=== PATIENT | male | born 1960 | race Caucasian/White ===

== ENCOUNTER 2019-11-26 08:11 | Outpatient (CLI) | payer BC, OTHER, SELFPAY ==
[2019-11-26 08:46] LABS: Hematocrit 46.9 % (42.0-52.0); Hemoglobin 16.4 g/dL (14.0-18.0); Mean Corpuscular Volume 94.4 fl (80-100); Mean Platelet Volume 11.3 fl (7.4-10.4); Platelet Count Result 222 k/mm3 (150-375); Red Blood Count 4.97 M/mm3 (4.6-6.20); Red Cell Distribution Width 12.9 % (11.5-14.5); White Blood Count 6.6 K/mm3 (4.5-10.0)
[2019-11-26 08:47] LABS: Alanine Aminotransferase 23 U/L (4-50); Albumin Level 4.5 g/dL (3.5-5.1); Alkaline Phosphatase 64 U/L (38-126); Aspartate Amino Transferase 28 U/L (17-59); Bilirubin,Total 0.6 mg/dL (0.2-1.3); Blood Urea Nitrogen 11 mg/dL (9-20); Calcium 9.3 mg/dL (8.4-10.2); Carbon Dioxide 26 mmol/L (22-30); Chloride 104 mmol/L (98-107); Cholesterol 181 mg/dL (0-200); Estimated Glomerular Filt Rate > 60; Glucose 93 mg/dL (75-110); HDL Direct 39 mg/dL; Potassium 4.5 mmol/L (3.4-5.0); Sodium 138 mmol/L (137-145); Triglycerides 124 mg/dL (<150)
[2019-11-26 08:58] LABS: LDL Cholesterol Direct 104 mg/dL
[2019-11-26 10:33] LABS: Thyroid Stimulating Hormone Reflex 0.741 uIU/mL (0.465-4.68)
== END 2019-11-26 08:12 | disposition home or self-care (01) ==
PROVIDERS: PCP Family Medicine; Visit Provider Family Medicine
DX: E78.2 Mixed hyperlipidemia (principal); R53.83 Other fatigue; I48.0 Paroxysmal atrial fibrillation; I10 Essential (primary) hypertension
CPT/HCPCS: 36415; 80053; 80061; 84443; 85027

== ENCOUNTER 2020-10-19 07:13 | Outpatient (CLI) | payer BC, OTHER, SELFPAY ==
[2020-10-19 07:54] LABS: Hematocrit 45.5 % (42.0-52.0); Hemoglobin 15.6 g/dL (14.0-18.0); Mean Corpuscular HGB Conc 34.3 g/dl (32-36); Mean Corpuscular Hemoglobin 32.2 pg (26-34); Mean Platelet Volume 10.5 fl (7.4-10.4); Platelet Count Result 207 k/mm3 (150-375); Red Blood Count 4.84 M/mm3 (4.6-6.20); White Blood Count 5.9 K/mm3 (4.5-10.0)
[2020-10-19 08:07] LABS: Alanine Aminotransferase 30 U/L (4-50); Albumin Level 4.2 g/dL (3.5-5.1); Alkaline Phosphatase 61 U/L (38-126); Anion Gap 9 mmol/L (8-16); Aspartate Amino Transferase 35 U/L (17-59); Bilirubin,Total 0.6 mg/dL (0.2-1.3); Blood Urea Nitrogen 12 mg/dL (9-20); Calcium 9.5 mg/dL (8.4-10.2); Carbon Dioxide 25 mmol/L (22-30); Chloride 107 mmol/L (98-107); Cholesterol 230 mg/dL (0-200); Estimated Glomerular Filt Rate > 60; Glucose 96 mg/dL (75-110); HDL Direct 43 mg/dL; Potassium 4.2 mmol/L (3.4-5.0); Sodium 141 mmol/L (137-145); Triglycerides 163 mg/dL (<150)
[2020-10-19 08:19] LABS: LDL Cholesterol Direct 125 mg/dL
[2020-10-19 08:45] LABS: Prostate Specific Antigen 2.6 ng/mL (< OR = 4.0)
[2020-10-19 08:49] LABS: Thyroid Stimulating Hormone Reflex 0.863 uIU/mL (0.465-4.68)
== END 2020-10-19 07:14 | disposition home or self-care (01) ==
PROVIDERS: PCP Family Medicine; Visit Provider Family Medicine
DX: Z12.5 Encounter for screening for malignant neoplasm of prostate (principal); R53.83 Other fatigue; I48.0 Paroxysmal atrial fibrillation; E78.2 Mixed hyperlipidemia
CPT/HCPCS: 36415; 80053; 80061; 84153; 84443; 85027; G0103

== ENCOUNTER 2021-06-20 07:09 | Outpatient (CLI) | payer BC, OTHER, SELFPAY ==
[2021-06-20 08:21] LABS: Alanine Aminotransferase 23 U/L (4-50); Albumin Level 4.2 g/dL (3.5-5.1); Alkaline Phosphatase 75 U/L (38-126); Anion Gap 8 mmol/L (8-16); Aspartate Amino Transferase 26 U/L (17-59); Bilirubin,Total 0.4 mg/dL (0.2-1.3); Blood Urea Nitrogen 16 mg/dL (9-20); Calcium 9.6 mg/dL (8.4-10.2); Carbon Dioxide 26 mmol/L (22-30); Chloride 106 mmol/L (98-107); Cholesterol 164 mg/dL (0-200); Estimated Glomerular Filt Rate > 60; Glucose 101 mg/dL (65-110); HDL Direct 34 mg/dL; Potassium 4.3 mmol/L (3.4-5.0); Sodium 140 mmol/L (137-145); Triglycerides 118 mg/dL (<150)
[2021-06-20 08:32] LABS: LDL Cholesterol Direct 92 mg/dL
== END 2021-06-20 07:10 | disposition home or self-care (01) ==
LOC: ANHLAB 07:11
PROVIDERS: PCP Family Medicine; Visit Provider Family Medicine
DX: E78.2 Mixed hyperlipidemia (principal); I48.0 Paroxysmal atrial fibrillation
CPT/HCPCS: 36415; 80053; 80061

== ENCOUNTER 2021-10-24 07:17 | Outpatient (CLI) | payer BC, OTHER, SELFPAY ==
[2021-10-24 08:09] LABS: Alanine Aminotransferase 25 U/L (6-50); Albumin Level 4.8 g/dL (3.5-5.1); Alkaline Phosphatase 86 U/L (38-126); Anion Gap 7 mmol/L (8-16); Aspartate Amino Transferase 25 U/L (17-59); Bilirubin,Total 0.5 mg/dL (0.2-1.3); Blood Urea Nitrogen 21 mg/dL (9-20); Calcium 9.2 mg/dL (8.4-10.2); Carbon Dioxide 25 mmol/L (22-30); Chloride 106 mmol/L (98-107); Cholesterol 212 mg/dL (0-200); Estimated Glomerular Filt Rate > 60; Glucose 111 mg/dL (65-110); HDL Direct 48 mg/dL; Potassium 4.2 mmol/L (3.4-5.0); Sodium 138 mmol/L (137-145); Triglycerides 209 mg/dL (<150)
[2021-10-24 08:21] LABS: LDL Cholesterol Direct 109 mg/dL
[2021-10-24 08:39] LABS: Prostate Specific Antigen 3.3 ng/mL (< OR = 4.0)
== END 2021-10-24 07:18 | disposition home or self-care (01) ==
LOC: ANHLAB 07:20
PROVIDERS: PCP Family Medicine; Visit Provider Family Medicine
DX: E11.9 Type 2 diabetes mellitus without complications (principal); E78.2 Mixed hyperlipidemia; Z12.5 Encounter for screening for malignant neoplasm of prostate
CPT/HCPCS: 36415; 80053; 80061; 84153; G0103

== ENCOUNTER 2022-05-16 07:15 | Outpatient (CLI) | payer BC, OTHER, SELFPAY ==
[2022-05-16 08:00] LABS: Potassium 4.1 mmol/L (3.4-5.0)
[2022-05-16 08:01] LABS: Alanine Aminotransferase 27 U/L (6-50); Albumin Level 4.5 g/dL (3.5-5.1); Alkaline Phosphatase 77 U/L (38-126); Anion Gap 6 mmol/L (8-16); Aspartate Amino Transferase 27 U/L (17-59); Bilirubin,Total 0.6 mg/dL (0.2-1.3); Blood Urea Nitrogen 12 mg/dL (9-20); Calcium 9.2 mg/dL (8.4-10.2); Carbon Dioxide 30 mmol/L (22-30); Chloride 102 mmol/L (98-107); Cholesterol 210 mg/dL (0-200); Estimated Glomerular Filt Rate > 60; Glucose 98 mg/dL (65-110); HDL Direct 41 mg/dL; Sodium 138 mmol/L (137-145); Triglycerides 183 mg/dL (<150)
[2022-05-16 08:11] LABS: LDL Cholesterol Direct 109 mg/dL
[2022-05-16 09:02] LABS: Hemoglobin A1C 5.5 % (<5.7)
== END 2022-05-16 07:16 | disposition home or self-care (01) ==
LOC: ANHLAB 07:18
PROVIDERS: PCP Family Medicine; Visit Provider Family Medicine
DX: E78.2 Mixed hyperlipidemia (principal); R73.09 Other abnormal glucose
CPT/HCPCS: 36415; 80053; 80061; 83036

== ENCOUNTER 2022-11-01 06:43 | Outpatient (CLI) | payer BC, OTHER, SELFPAY ==
[2022-11-01 07:30] LABS: Alanine Aminotransferase 31 U/L (6-50); Albumin Level 4.3 g/dL (3.5-5.1); Alkaline Phosphatase 79 U/L (38-126); Anion Gap 4 mmol/L (8-16); Aspartate Amino Transferase 29 U/L (17-59); Bilirubin,Total 0.6 mg/dL (0.2-1.3); Blood Urea Nitrogen 15 mg/dL (9-20); Calcium 8.9 mg/dL (8.4-10.2); Carbon Dioxide 30 mmol/L (22-30); Chloride 106 mmol/L (98-107); Cholesterol 177 mg/dL (0-200); Estimated Glomerular Filt Rate > 60; Glucose 96 mg/dL (65-110); HDL Direct 44 mg/dL; Potassium 4.3 mmol/L (3.4-5.0); Sodium 140 mmol/L (137-145); Triglycerides 165 mg/dL (<150)
[2022-11-01 07:40] LABS: LDL Cholesterol Direct 99 mg/dL
[2022-11-01 08:56] LABS: Prostate Specific Antigen 3.4 ng/mL (< OR = 4.0)
== END 2022-11-01 06:44 | disposition home or self-care (01) ==
LOC: ANHLAB 06:45
PROVIDERS: PCP Family Medicine; Visit Provider Family Medicine
DX: E78.2 Mixed hyperlipidemia (principal); I48.0 Paroxysmal atrial fibrillation; Z12.5 Encounter for screening for malignant neoplasm of prostate
CPT/HCPCS: 36415; 80053; 80061; 84153; G0103

== ENCOUNTER 2022-12-04 09:00 | Outpatient (RCR) | payer BC, OTHER, SELFPAY ==
--- NOTE | 2022-10-30 15:43 | PTOPEVAL1 ---
Assessment and note entered by Rosaura Quick, PT Evaluation Information Assessment Status Evaluation Diagnosis dizziness Onset September 2022 Subjective Information chronic issues with dizziness; intermittent symptoms; symptoms: light headed- comes and goes, ears pinch and itch, world spinning increase symptoms: weather changes; bend forward and stand back up; sit to stand too fast; decrease symptoms: since getting the allergy shots; lie down in bed or recline in recliner; rest use meclazine PRN; previous treatment for vertigo: walk with turning rest, take meds; have had treatment for BPPV; Reported Pain Level Pain Score Self Report Additional Pain Score Comments pain range in neck over the past week 0-6/10; have headaches take over the counter meds--2x/week Assessment PT Clinical Summary William has the diagnosis of dizziness. He has a complex medical history with multiple risk factors for dizziness: neck pain, headaches, back pain, hearing loss, anxiety, allergy/sinus issues, a fib, multiple meds. He reports issues since with dizziness. Recently has been less since being treated by an lime plant operator with allergy shots monthly. And weather changes seem to increase his symptoms. With the evaluation: he has decreased cervical rotation to R and L, and shoulder flexion and abduction ROM with all, pain increase; with the vestibular testing: he had increase symptoms with gaze stabilization and eye tracking with vertical motions; Jennifer King [place] and Horizontal roll test for BPPV were negative; activity motions that increase s/s: supine/sit, sit/stand, 360' turn to R > L and pick something up off floor. Skilled PT services are indicated for vestibular therapy, with treatment initiate with occulomotor activities to improve vestibular system, with progression of treatment to improve his mobility and activity level.
--- NOTE | 2022-12-04 10:03 | OPREHPOC ---
Outpatient Therapy Plan of Care This is a Multidisciplinary Plan of Care that may contain components documented by all disciplines (PT, OT, and ST.) PT Problem 1 PT Problem #1 Knowledge Deficit PT Goal 1 Goal 1* pt indep with HEP Progress Met Comment 12-04-22 progress/ HOLD met goal PT Problem 2 PT Problem #2 Impaired Vestibular Syste PT Goal 1 Goal pt perform without vestibular symptoms: 1* standing gaze stabilization with head motion up /down x 20 reps 2* standing with eye tracking up/down with head stable x 20 reps 3* transfer supine to sit 4* transfer sit to stand 5* 360' turn to R x1 rep 6* 360' turn to L x 1 rep 7* pick something up off floor 8* further testing of vestibular system as indicated with progression of treatment Progress Partially Met Comment 12-04-22 progress/ HOLD met goal 1,2,5,6,7-- reports of off balance not spinning/dizzy
--- NOTE | 2022-12-04 10:04 | PTOPPROG ---
Assessment and note entered by Rosaura Quick, PT Evaluation Information Assessment Status Progress Diagnosis dizziness Onset September 2022 Subjective Information William reports: still having problems--balance problems when close his eyes; some off balance with walking; s/s: lightheaded, sloshy headed feeling; do not have all the time, but always on the edge of starting up; some balance problems; some white dots see when close eyes; increase s/s: usually more troubles in the morning, compared to later in the day; afternoons are not as bad; both ears hurt ,pinching feeling- deep in ear; EDUCATION: discussed time of taking meds-- tracking s/s to when take meds; consider allergy, sinus issues, hearing issues; HEP: review- doing cervical stretching, eye tracking exercises, balance- heel toe stand and single leg standing; He will be out of town most of December and has an ENT appointment Jan 09--wants to hold on therapy until after he sees ENT. Assessment PT Clinical Summary William has received 6 PT sessions. He continues to have reports as above--little dizzy, spinning, off balance. Also reports of ear pain and pinching, with visual changes--seeing white dots and double vision with BPPV testing. Education completed for home exercises--addressing neck pain/tightness, eye tracking, balance activities. He has more awareness and trying to track and recognize changes in his s/s; Today,he reports more issues in the morning, and better as the day goes on. He has multiple issues that may be causing his symptoms: sinus/allergy, multiple meds, cardiac meds for a-fib, neck pain, hearing decline, reading glasses PRN. William will be out of town for most of December, and
== END 2023-01-27 10:28 | disposition home or self-care (01) ==
LOC: ANHPT 09:00
PROVIDERS: PCP Family Medicine; Visit Provider Family Medicine
DX: R42 Dizziness and giddiness (principal)
CPT/HCPCS: 97110; 97112; 97162; 97530

== ENCOUNTER 2023-12-30 07:13 | Outpatient (CLI) | payer MEDICARE, BC, OTHER, SELFPAY ==
[2023-12-30 08:01] LABS: Alanine Aminotransferase 24 U/L (6-50); Albumin Level 4.2 g/dL (3.5-5.1); Alkaline Phosphatase 80 U/L (38-126); Anion Gap 8 mmol/L (4-12); Aspartate Amino Transferase 25 U/L (17-59); Bilirubin,Total 0.4 mg/dL (0.2-1.3); Blood Urea Nitrogen 12 mg/dL (9-20); Calcium 8.9 mg/dL (8.4-10.2); Carbon Dioxide 27 mmol/L (22-30); Chloride 105 mmol/L (98-107); Cholesterol 159 mg/dL (0-200); Estimated Glomerular Filt Rate > 60; Glucose 98 mg/dL (65-110); HDL Direct 38 mg/dL; Potassium 4.3 mmol/L (3.4-5.0); Sodium 140 mmol/L (137-145); Triglycerides 170 mg/dL (<150)
[2023-12-30 08:02] LABS: Basophils Absolute Auto 0.1 K/mm3 (0.0-0.1); Basophils Percent Auto 1.1 % (0.2-1.2); Eosinophils Absolute Auto 0.2 K/mm3 (0-0.3); Eosinophils Percent Auto 3.8 % (0-4.4); Hematocrit 45.7 % (42.0-52.0); Hemoglobin 15.9 g/dL (14.0-18.0); Immature Granulocyte Absolute 0.01 K/mm3 (0.00-0.031); Immature Granulocyte Percent A 0.2 % (0-0.5); Lymphocytes Absolute Auto 2.39 K/mm3 (0.9-3.2); Mean Corpuscular HGB Conc 34.8 g/dl (32-36); Mean Corpuscular Hemoglobin 32.9 pg (26-34); Mean Corpuscular Volume 94.4 fl (80-100); Mean Platelet Volume 11.1 fl (7.4-10.4); Monocytes Absolute Auto 0.6 K/mm3 (0.1-0.6); Neutrophils Absolute Auto 2.9 K/mm3 (1.3-6.7); Neutrophils Percent Auto 46.9 % (45.5-73.1); Platelet Count Result 227 k/mm3 (150-375); Red Blood Count 4.84 M/mm3 (4.6-6.20); Red Cell Distribution Width 12.8 % (11.5-14.5); White Blood Count 6.1 K/mm3 (4.5-10.0)
[2023-12-30 08:16] LABS: LDL Cholesterol Direct 85 mg/dL
[2023-12-30 08:31] LABS: Prostate Specific Antigen 3.5 ng/mL (< OR = 4.0)
[2023-12-30 10:06] LABS: Hemoglobin A1C 5.7 % (<5.7)
== END 2023-12-30 07:14 | disposition home or self-care (01) ==
LOC: ANHLAB 07:21
PROVIDERS: PCP Family Medicine; Visit Provider Family Medicine
DX: R53.83 Other fatigue (principal); Z12.5 Encounter for screening for malignant neoplasm of prostate; E78.2 Mixed hyperlipidemia; I48.0 Paroxysmal atrial fibrillation; R73.09 Other abnormal glucose
CPT/HCPCS: 36415; 80053; 80061; 83036; 84153; 84443; 85025; G0103

== ENCOUNTER 2025-01-17 06:42 | Outpatient (CLI) | payer MEDICARE, BC, OTHER, SELFPAY ==
--- OUTSIDE RECORDS SUMMARY | 2024-12-28 12:30 | XMS_ITS ---
Author Organization [facility] [place] ([address]) Address [address] [place] [address] Care Team Providers Care Lead Android Developer Name Role Phone Liz Tompkins Primary Care Provider Gilda Rodriguez Unavailable [phone] Max Chong Unavailable [phone] REASON FOR VISIT SCIT (Aeroallergen) Social History Sex Assigned At : Social History Observation Description Sex Assigned At Male Encounters Encounter Location Date Provider Diagnosis [facility] [place] [address] [place] [address] 12/28/2024 Max Chong Plan Of Treatment Next Appt Details Provider Name:Max Chong , 02/10/2025 09:30:00 AM, [address], [address], Provider Name:Max Chong , 03/10/2025 09:30:00 AM, [address], [address], Provider Name:Max Chong , 04/05/2025 09:30:00 AM, [address], [address], Provider Name:Gilda Johnson , 06/02/2025 09:30:00 AM, [address], [address], Progress Notes * Tony TOBIN GDOB:[birth year] (64 yo M)Acc No.[id number]:12/28/2024 SCIT-Aeroallergen Patient: Tony SANDERS Provider: Shad Chong MD :1960 A ge:64 Y S ex:Male Date:12/28/2024 Address:[address] [place], [place] [address] Pcp:Liz Tompkins Subjective: * Chief Complaints: * 1 . SCIT (Aeroallergen). * Medical History: Objective: * Vitals: Assessment: Plan: * Treatment: * Billing Information: * Visit Code: * Procedure Codes: * Electronic signature of Christine Chong MD, FAAAAI on 01/17/2025 at 06:46 AM CDT Sign off status: Pending * Provider: Shad Chong MD Date: 12/28/2024 Generated for Roney maravilla/Maricruz/eTransmitting on: 0 01/17/2025 06:46 AM CDT
--- NOTE | ~2025-01-17 | XR_ITS ---
[id number] 01/17/2025 07:34 Indication: Right knee pain Procedure: 2 views right knee Comparison: No prior studies for comparison. Findings: There is mild-moderate patellofemoral compartment osteoarthritis. No fracture, subluxation or dislocation. No joint effusion. Impression: 1: Mild-moderate patellofemoral compartment osteoarthritis. Reviewed, dictated and finalized at location O. Impression: 1: Mild-moderate patellofemoral compartment osteoarthritis.
--- NOTE | ~2025-01-17 | XR_ITS ---
EXAM/ PROCEDURE: [id number] - 01/17/2025 7:28 CDT HISTORY: 64 years old Male with M25.569 - Pain in unspecified knee COMPARISON: None available TECHNIQUE: Two view(s) FINDINGS/ IMPRESSION: There are no fractures or dislocations.Joint space narrowing, subchondral sclerosis, subchondral cyst formation and osteophyte formation, compatible with mild osteoarthritis. Reviewed, dictated and finalized at location N.
--- OUTSIDE RECORDS SUMMARY | 2025-01-17 06:46 | XMS_ITS | Clinical Summary ---
Author Organization [facility] Address [address] [facility] [place] [address] Care Team Providers Care Stock Preparation Supervisor Name Role Phone Unavailable Primary Care Provider Unavailabl e Source Comments [facility],non-owned Affiliates and Associated Physician Practices is amultiple site organization consisting of ambulatory clinics and hospital sitesin [place], [place] and [place]. This disclosure is being madepursuant to the Care Everywhere program and may not contain all information available regarding this patient. Last updated 18.[facility] Encounters Date Type Department Care Team Description 01/12/2025 Lab Requisition [facility] - DermPath Lab [address] [place] [address] Kavita Horn MD Melanocytic nevi of scalp and neck; Neoplasm of uncertain behavior of skin from Last 3 Months Social History Tobacco Use Types Packs/Day Years Used Date Smoking Tobacco: Never Assessed Sex and Gender Information Value Date Recorded Sex Assigned at Not on file Legal Sex Male 4:06 PM CDT Gender Identity Not on file Sexual Orientation Not on file Plan of Treatment Health Maintenance Due Date Last Done Comments COLOGUARD (AGES 45-75) - COL ON CA SCREENING 1958 COLON MONITORING 1958 COLONOSCOPY - COLON CA SCREENING 1958 CT COLONOGRAPHY - COLON CA SCREENING 1958 Colorectal Cancer Screening 1958 FIT - COLON CA SCREENING 1958 FLEX SIG - COLON CA SCREENING 1958 LIPID TESTING 1958 HEPATITIS C SCREENING 02/29/1976 DTAP/TDAP/TD VACCINES (1 - Tdap) 1977 PNEUMOCOCCAL VACCINE 50+ (1 of 1 - PCV) 2008 ZOSTER VACCINE (1 of 2) 2008 COVID-19 VACCINE (2023-2 5 season) 2024 DEPRESSION SCREENING 05/12/2024 INFLUENZA VACCINE (#1) 2025 Respiratory Syncytial Virus (RSV) Vaccine Pt: or over 60 yrs (1 - 1-dose 75+ series) 2033 HEPATITIS B VACCINE Aged Out No longe r eligible based on patient's age to complete this topic HIB VACCINE Aged Out No longer eligi ble based on patient's age to complete this topic HPV VACCINE Aged Out No longer eligi ble based on patient's age to complete this topic MENINGOCOCCAL (Group B) VACC INE SHARED DECISION-MAKING Aged Out No longer eligibl e based on patient's age to complete this topic MENINGOCOCCAL GROUPS A/C/Y/W VACCINE Aged Out No longer eligible b ased on patient's age to complete this topic Procedures Procedure Name Priority Date/Time Associated Diagnosis Comments DERMATOPATHOLOGY Routine 01/12/2025 9:00 AM CDT Melanocytic nevi of scalp and neck Neoplasm of uncertain behavior of skin from Last 3 Months Results * DERMATOPATHOLOGY (01/12/2025 9:00 AM CDT) Case Report Dermatopathology Report Case: [id number] Authorizing Provider: Kavita Horn MD Collected: 01/12/2025 09:00 AM Ordering Location: [facility] - Received: 01/13/2025 07:29 AM DermPath Lab Pathologist: Kavita Holman MD Specimens: A) - Skin, right posterior neck B) - Skin, left lateral superior chest 4:52 PM CDT DERMATOPATHOLOGY LABORATORY Final Diagnosis Specimen A. SKIN, right posterior neck: COMPOUND MELANOCYTIC NEVUS (D22.4) Specimen B. SKIN, left lateral superior chest: COMPOUND MELANOCYTIC PROLIFERATION (D48.5) (see microscopic description and comment) 4:52 PM CDT DERMATOPATHOLOGY LABORATORY at 1652 CDT Clinical History A: Irritated Nevus B: R/O Atypical Melanocytic Process 4:52 PM CDT DERMATOPATHOLOGY LABORATORY Gross Description Specimen A: Received is one formalin filled container labeled with the patient's name and designated right posterior neck. The specimen consists of a shave biopsy measuring 8x5x2 mm. Jar 0. Specimen B: Received is one formalin filled container labeled with the patient's name and designated left lateral superior chest. The specimen consists of a shave biopsy measuring 7x6x1 mm. Jar 0. 4:52 PM T DERMATOPATHOLOGY LABORATORY Microscopic Description Specimen A. SKIN, right posterior neck: There are nests of melanocytes at the dermal-epidermal junction and within the dermis. Specimen B. SKIN, left lateral superior chest: Sections show a compound melanocytic proliferation. There is a lentiginous proliferation of melanocytes between irregular nests. Scattered melanocytes show evidence of upward migration within the epidermis. The dermis shows scattered small nests of cytologically similar melanocytes. The hematoxylin and eosin stain is reviewed; immunohistochemical stains are performed to further characterize this process. Mart1/Melan A highlights the lesion. PRAME displays focal overexpression (2-3+). COMMENT: Although a compound lentiginous nevus was considered, the presence of PRAME overexpression coupled with the architectural features, is somewhat atypical. As this lesion appears completely excised in the sampled sections, clinicopathologic correlation is recommended as to complete removal. This specimen has been reviewed by Dr. Sandee Holman who concurs with the diagnosis. 4:52 PM T DERMATOPATHOLOGY LABORATORY Disclaimer An external and internal positive and negative controls are appropriate for the histochemical, immunohistochemical and immunofluorescence stain(s) in this case (if any), except where stated explicitly. The performance characteristics of the stain(s) cited in this report were developed and its performance characteristic determined by the Dermatopathology Laboratory at [facility], directed by Dr. Jonathan Hua. These tests need not be, and therefore are not, approved by the [place] Food and Drug Administration. The tests are used for clinical purposes. Billing Codes Specimen Charges Stain Charges 62381 64949 1 1 47401 12110 1 1 4:52 PM CDT DERMATOPATHOLOGY LABORATORY Embedded Images 4:52 PM CDT DERMATOPATHOLOGY LABORATORY Pathology/Cytology TISSUE SPECIMEN FROM SKIN / Unknown 01/12/2025 9:00 AM CDT 01/13/2025 7:29 AM CDT Miscellaneous samples (specimen) TISSUE SPECIMEN FROM SKIN / Unknown 01/12/2025 9:00 AM CDT 01/13/2025 7:29 AM CDT Kavita Horn MD LAB - PATHOLOGY/CYTOLOGY THEO CERVANTES Final Result DERMATOPATHOLOGY LABORATORY [facility] Department of Dermatology [address] [place] [address], [facility] [phone] from Last 3 Months Insurance [facility] Member Subscriber Plan / Payer (Ef fective 2018-Present) Name:Margaret Tobin Relation to Subscriber:Self Name:Margaret Tobin Payer ID:[id number] (NAIC) Group ID:[id number] Type:[facility] Address: [address] MEDICARE [place] [address] ANTHEM ANTHEM
--- OUTSIDE RECORDS SUMMARY | 2025-01-17 06:46 | XMS_ITS | Encounter Summary ---
Author Organization [facility] Address [address] [place] [address] Care Team Providers Care Drive Man Name Role Phone Unavailable Primary Care Provider Unavailabl e Encounter Details Date Type Department Care Team (Late st Contact Info) Description 01/13/2024 Lab Requisition [facility] - DermPath Lab [address] [place] [phone] Kavita Horn MD [address] [place], [place] [id number] Melanocytic nevi of other parts of face Social History Tobacco Use Types Packs/Day Years Used Date Smoking Tobacco: Never Assessed Sex and Gender Information Value Date Recorded Sex Assigned at Not on file Legal Sex Male 4:06 PM CDT Gender Identity Not on file Sexual Orientation Not on file documented as of this encounter Plan of Treatment Not on file documented as of this encounter Visit Diagnoses Diagnosis Melanocytic nevi of other parts of face documented in this encounter
--- OUTSIDE RECORDS SUMMARY | 2025-01-17 06:46 | XMS_ITS | Encounter Summary ---
Author Organization [facility] Address [address] [place] [address] Care Team Providers Care Central Aisle Cashier Name Role Phone Unavailable Primary Care Provider Unavailabl e Encounter Details Date Type Department Care Team (Late st Contact Info) Description 01/09/2023 Lab Requisition [facility] - DermPath Lab [address] [place] [phone] Kavita Horn MD [address] [place] [address] Social History Tobacco Use Types Packs/Day Years Used Date Smoking Tobacco: Never Assessed Sex and Gender Information Value Date Recorded Sex Assigned at Not on file Legal Sex Male 4:06 PM CDT Gender Identity Not on file Sexual Orientation Not on file documented as of this encounter Plan of Treatment Not on file documented as of this encounter Procedures Procedure Name Priority Date/Time Associated Diagnosis Comments DERMATOPATHOLOGY Routine 01/08/2023 12:0 0 AM CDT documented in this encounter Results * DERMATOPATHOLOGY (01/08/2023 12:00 AM CDT) Case Report Dermatopathology Report Case: [id number] Authorizing Provider: Kavita Horn MD Collected: 01/08/2023 12:00 AM Ordering Location: [facility] DermPath Lab Received: 01/09/2023 11:30 AM Pathologist: Gayathri Hua MD Specimens: A) - Skin, right superior lateral malar cheek B) - Skin, right upper cutaneous lip 5:25 PM CDT DERMATOPATHOLOGY LABORATORY Final Diagnosis Specimen A. SKIN, right superior lateral malar cheek: INTRADERMAL MELANOCYTIC NEVUS (D22.39) Specimen B. SKIN, right upper cutaneous lip: INTRADERMAL MELANOCYTIC NEVUS (D22.39) 3 5:25 PM CDT DERMATOPATHOLOGY LABORATORY at 1725 CDT Clinical History A-B: Irritated Nevus 3 5:25 PM CDT DERMATOPATHOLOGY LABORATORY Gross Description Specimen A: Received is one formalin filled container labeled with the patient's name and designated right superior lateral malar cheek. The specimen consists of a shave biopsy measuring 6x7x3 mm. Jar 0. Specimen B: Received is one formalin filled container labeled with the patient's name and designated right upper cutaneous lip. The specimen consists of a shave biopsy measuring 5x5x2 mm. Jar 0. 3 5:25 PM CDT DERMATOPATHOLOGY LABORATORY Microscopic Description Specimen A. SKIN, right superior lateral malar cheek: There are nests of cytologically bland melanocytes within the dermis that mature with depth. Specimen B. SKIN, right upper cutaneous lip: There are nests of cytologically bland melanocytes within the dermis that mature with depth. 3 5:25 PM CDT DERMATOPATHOLOGY LABORATORY Disclaimer An external and internal positive and negative controls are appropriate for the histochemical, immunohistochemical and immunofluorescence stain(s) in this case (if any), except where stated explicitly. The performance characteristics of the stain(s) cited in this report were developed and its performance characteristic determined by the Dermatopathology Laboratory at [facility], directed by Dr. Jonathan Hua. These tests need not be, and therefore are not, approved by the [place] Food and Drug Administration. The tests are used for clinical purposes. Billing Codes Specimen Charges Stain Charges 13965 87367 1 1 3 5:25 PM CDT DERMATOPATHOLOGY LABORATORY Embedded Images 3 5:25 PM CDT DERMATOPATHOLOGY LABORATORY Pathology/Cytology TISSUE SPECIMEN FROM SKIN / Unknown 01/08/2023 01/09/2023 11:30 AM CDT Miscellaneous samples (specimen) TISSUE SPECIMEN FROM SKIN / Unknown 01/08/2023 01/09/2023 11:30 AM CDT us Kavita Horn MD LAB - PATHOLOGY/CYTOLOGY THEO CERVANTES Final Result DERMATOPATHOLOGY LABORATORY [facility] - Department of Dermatology [facility] Medicine [address] [place] [address], [address] [phone] documented in this encounter Visit Diagnoses Not on filedocumented in this encounter
--- OUTSIDE RECORDS SUMMARY | 2025-01-17 06:46 | XMS_ITS | Clinical Summary ---
Author Organization [facility] [address] Address [address] [place] [address] Care Team Providers Care Personnel Representative Name Role Phone Liz Tompkins MD Primary Care Provider [phone] Allergies Active Allergy Reactions Criticality Noted Date Comments Aller Xt-Tree Pollen-[place] Rhinitis,Tinnitus Low 04/24/2020 Allergenic Xt-Epicoccum Nigrum Headache,Rhinitis,Tinnitu s Low 04/24/2020 Aspergillus Fumigatis Headache,Rhinitis, Tinnitu s Low 04/24/2020 Birch Headache,Rhinitis,Ti nnitu s Low 04/24/2020 Black [place] Headache,Rhinitis,Ti nnitu s Low 04/24/2020 [place] Headache,Rhinitis,Ti nnitu s Low 04/24/2020 Grass Pollen-[place], Standard Headache,Rhinitis,Tinnitu s Low 04/24/2020 Histamine Headache,Rhinitis,Ti nnitu s Low 04/24/2020 Tree Pollen-Sweet Gum Headache,Rhinitis, Tinnitu s Low 04/24/2020 Medications aspirin (WILLOW ASPIRIN) 325 mg tablet take 1 tablet by oral route every day 0 0 7 Active cholecalciferol (VITAMIN D-3) 1,000 unit capsule Take two by mouth one time per day 0 0 9 Active simvastatin (ZOCOR) 20 mg tablet Take one by mouth one time per day 0 0 9 Active sildenafil (REVATIO) 100 mg tablet Take 1 tablet (100 mg total) by mouth daily as needed for erectile dysfunction Active ibuprofen (ADVIL,MOTRIN) 400 mg tablet Take by mouth every 6 (six) hours as needed for pain. Active ketoconazole (NIZORAL) 2 % cream Apply topically daily. Active cetirizine 10 mg capsule Take 10 mg by mouth daily Active fluticasone propionate (FLONASE) 50 mcg/actuation nasal spray Administer 1 spray into each nostril daily Active EPINEPHrine 0.3 mg/0.3 mL auto-injection syringeIndicati ons:Anaphylaxis Inject 0.3 mL (0.3 mg total) into the muscle as instructed as needed for anaphylaxis Active ALPRAZolam (XANAX) 0.25 mg tablet Active pantoprazole DR (PROTONIX) 40 mg EC tablet Take 1 tablet (40 mg total) by mouth daily Active busPIRone (BUSPAR) 10 mg tablet 1 Active escitalopram (LEXAPRO) 20 mg tablet 1 tablet (20 mg total) 1 Active cannabidiol, CBD, (medical cannabis) each 1 Active Active Problems Problem Noted Date Diagnosed Date SEGURA (dyspnea on exertion) 12/04/2023 Mixed hyperlipidemia 05/07/2021 Atypical chest pain 10/30/2020 Shortness of breath 04/24/2020 GERD (gastroesophageal reflux disease) 0 First degree AV block 05/03/2019 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 10/2017 Chronic back pain 05/31/2016 Overview (08/16/2016): Chronic back pain, unspecified back location, unspecified back pain laterality Paroxysmal atrial fibrillation 05/31/2016 Overview (08/16/2016): Paroxysmal atrial fibrillation Resolved Problems Problem Noted Date Diagnosed Date Resolved Date Dyslipidemia 05/31/2016 05/07/2021 Overview (08/16/2016): Dyslipidemia Surgical History Surgery Date Site/Laterality Comments HERNIA REPAIR 2000 Medical History Medical History Date Comments Atrial fibrillation (HCC) GERD (gastroesophageal reflux disease) May 13 Anxiety 2009 Arthritis 2004 Family History Medical History Relation Name Comments Kidney disease Father Tony Tobin Other Father Tony Tobin Kidney Disease; Cause of : Kidney Disease Heart attack Maternal Grandfather Vangie Arthritis Mother Ayde Atrial fibrillation Mother Ayde Atrial f ibrillation; Heart failure Mother Ayde Congestive hea rt failure; Mental illness Mother's Sister Pat Stroke Paternal Grandfather Ruben Other Sister 2 Alive and well; Relation Name Status Comments Father Tony Tobin (Age 31) Maternal Grandfather Vangie Mother Ayde Mother's Sister Pat Paternal Grandfather Ruben Sister 1 Alive Sister 2 Social History Tobacco Use Types Packs/Day Years Used Date Smoking Tobacco: Never Smokeless Tobacco: Never Tobacco Cessation:Counseling Given: Not Answered Alcohol Use Standard Drinks/Week Comments No 0 (1 standard drink = 0.6 oz pur e alcohol) Sex and Gender Information Value Date Recorded Sex Assigned at Not on file Legal Sex Male 12:54 AM PLANT TENDER Gender Identity Male 10/23/2020 8:29 AM CDT Sexual Orientation Straight 10/23/2020 8: 29 AM CDT Obstetrics History Last Filed Vital Signs Vital Sign Reading Time Taken Comments Blood Pressure 110/76 07/21/2024 9:07 AM CDT Pulse 72 07/21/2024 9:07 AM CDT Temperature - - Respiratory Rate 12 12/04/2016 2:38 PM CDT Oxygen Saturation 96% 07/21/2024 9:07 AM CDT Inhaled Oxygen Concentration - - Weight 117.5 kg (259 lb) 07/21/2024 9:07 AM CDT Height 185.4 cm (6' 1) 07/21/2024 9:07 AM CDT Body Mass Index 34.17 07/21/2024 9:07 AM CDT Plan of Treatment Health Maintenance Due Date Last Done Comments Colon Cancer Screening-Colonoscopy 1958 Depression Screening 1958 Fall Risk Assessment 1960 Hepatitis C Screening 1960 Prostate Cancer Screening-PSA 1958 DTaP/Tdap/Td Vaccine (1 - Tdap) 1969 Hepatitis B Screening 1976 Zoster Vaccine (1 of 2) 2008 Well Visit 65+ 2023 Covid-19 Vaccine (2023-2 5 season) 2024 02/14/2023, 02/01/2022, 09/19/2021, Additional history exists Influenza Vaccine (#1) 2025 3, 02/01/2022, 02/15/2021, Additional history exists Pneumococcal vaccine 65+ Completed 04/23/2023 Insurance [facility] Address: [address] [place] [address] MEDICARE [facility] LIFE [facility] CLAIMS Care Teams Personnel Representative Relationship Specialty Start Date End Date Liz Tompkins MD PCP - General 08/09/16
--- OUTSIDE RECORDS SUMMARY | 2025-01-17 06:46 | XMS_ITS | Encounter Summary ---
Author Organization [facility] Address [address] [place] [address] Care Team Providers Care System Specialist Name Role Phone Unavailable Primary Care Provider Unavailabl e Encounter Details Date Type Department Care Team (Late st Contact Info) Description 01/13/2024 Lab Requisition [facility] - DermPath Lab [address] [place] [phone] Kavita Horn MD [address] [place] [address] Social History Tobacco Use Types Packs/Day Years [...] Priority Date/Time Associated Diagnosis Comments DERMATOPATHOLOGY Routine 01/13/2024 12:0 0 AM CDT documented in this encounter Results * DERMATOPATHOLOGY (01/13/2024 12:00 AM CDT) Case Report Dermatopathology Report Case: [id number] Authorizing Provider: Kavita Horn MD Collected: 01/13/2024 12:00 AM Ordering Location: [facility] - Received: 01/14/2024 06:10 AM DermPath Lab Pathologist: Gayathri Hua MD Specimens: A) - Skin, left nasal sidewall B) - Skin, left inferior medial buccal cheek 4:29 PM CDT DERMATOPATHOLOGY LABORATORY Final Diagnosis Specimen A. SKIN, left nasal sidewall: INTRADERMAL MELANOCYTIC NEVUS (D22.39) Specimen B. SKIN, left inferior medial buccal cheek: INTRADERMAL MELANOCYTIC NEVUS (D22.39) 4:29 PM CDT DERMATOPATHOLOGY LABORATORY at 1629 CDT Clinical History A-B: irritated Nevus 4:29 PM CDT DERMATOPATHOLOGY LABORATORY Gross Description Specimen A: Received is one formalin filled container labeled with the patient's name and designated left nasal sidewall. The specimen consists of a shave biopsy measuring 7x6x2 mm. Jar 0. Specimen B: Received is one formalin filled container labeled with the patient's name and designated left inferior medial buccal cheek. The specimen consists of a shave biopsy measuring 5x5x1 mm. Jar 0. 4:29 PM CDT DERMATOPATHOLOGY LABORATORY Microscopic Description Specimen A. SKIN, left nasal sidewall: There are nests of cytologically bland melanocytes within the dermis that mature with depth. Specimen B. SKIN, left inferior medial buccal cheek: There are nests of cytologically bland melanocytes within the dermis that mature with depth. 4:29 PM CDT DERMATOPATHOLOGY LABORATORY Disclaimer An external and internal positive and negative controls are appropriate for the histochemical, immunohistochemical and immunofluorescence stain(s) in this case (if any), except where stated explicitly. The performance characteristics of the stain(s) cited in this report were developed and its performance characteristic determined by the Dermatopathology Laboratory at [facility], directed by Dr. Jonathan Hua. These tests need not be, and therefore are not, approved by the [place] Food and Drug Administration. The tests are used for clinical purposes. Billing Codes Specimen Charges Stain Charges 38099 99154 1 1 4:29 PM CDT DERMATOPATHOLOGY LABORATORY Embedded Images 4:29 PM CDT DERMATOPATHOLOGY LABORATORY Pathology/Cytology TISSUE SPECIMEN FROM SKIN / Unknown 01/13/2024 01/14/2024 6:10 AM CDT Miscellaneous samples (specimen) TISSUE SPECIMEN FROM SKIN / Unknown 01/13/2024 01/14/2024 6:10 AM CDT us Kavita Horn MD LAB - PATHOLOGY/CYTOLOGY THEO CERVANTES Final Result DERMATOPATHOLOGY LABORATORY [facility] - Department of Dermatology [facility] [address] [place] [address], [address] [phone] documented in this encounter Visit Diagnoses Not on filedocumented in this encounter
--- OUTSIDE RECORDS SUMMARY | 2025-01-17 06:46 | XMS_ITS | Patient Health Record ---
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 Name Role Phone Liz Tompkins Primary Care Provider UnavailGilda George Unavailable [phone] Max Chong Unavailable [phone] Uyen Euceda Unavailable [phone] Allergies No Known Allergies Reason For Referral No Information Medications Medication SIG (Take, Route, Frequency, Duration) Notes Start Date End Date Status Simvastatin 20 MG 1 tab(s) orally once a day (at bedtime); Duration: 30 day(s) Active Escitalopram Oxalate 20 MG 1 tab(s) orally bid Active Montelukast Sodium 10 MG 1 tab(s) orally once a day; Duration: 30 day(s) Not-Sacha ing Flecainide Acetate 100 MG 1 tab(s) orally every 12 hours; Duration: 30 day(s) Not-Taking Fish Oil 1000 MG 1 cap(s) orally once a day; Duration: 30 day(s) Not-Sacha ing CETIRIZINE HYDROCHLORIDE 10 mg 1 tab(s) orally daily; Duration: 30 day(s) Active Cetirizine HCl 10 MG 1 tab(s) orally edwin ly; Duration: 30 day(s) Not-Taking NASAL WASHES N/A as directed intranas ally as needed Active Flonase Allergy Relief 50 MCG/ACT 1 spray(s) in each nostril once a day Not-Taking FLUTICASONE PROPIONATE 50 mcg/inh 2 sprays intranasally each nostril twice a day; Duration: 90 days Active Multivitamin - 1 tab(s) orally once a day; Duration: 30 day(s) Not-Sacha ing SIT (TRADITIONAL) variable per schedule SC per schedule; Duration: to be determined Active EPINEPHrine 0.3 MG/0.3ML as directed Injection as needed; Duration: 30 days 11/30/2024 Active AZELASTINE HYDROCHLORIDE NASAL 137 mcg/inh 2 spray(s) intranasally 2 times a day; Duration: 90 days Active EPIPEN 2-TAYE 0.3 mg 0.3 mg intramuscular ly once Active ZyrTEC Allergy 10 MG 1 tablet PO QD; Dur ation: 30 days Active EpiPen 2-Taye 0.3 MG/0.3ML 0.3 mg intramuscularly once Active Fluticasone Propionate 50 MCG/ACT 2 sprays intranasally each nostril twice a day; Duration: 90 days Active Azelastine HCl 137 MCG/SPRAY 2 spray(s) intranasally 2 times a day; Duration: 90 days Active Ketoconazole 200 MG 1 tab(s) orally once a day Active Nystatin 539831 UNIT/ML 4 mL orally 4 times a day Active Aspirin 325 MG 1 tab(s) orally ever y 4 hours; Duration: 30 days Active Viagra 100 MG 1 tab(s) orally once a day Active Pantoprazole Sodium 40 MG 1 tab(s) orally once a day; Duration: 30 day(s) Active busPIRone HCl 10 MG 1 tab(s) orally 2 ti mes a day; Duration: 30 day(s) Active Vitamin D3 25 MCG 1 tab(s) orally once a day; Duration: 30 day(s) Active Immunizations Vaccine Route Administration Date Status Comme nts NOC Tdap Unknown 09/02/2017 Administered Portal Infor mation Influenza Unknown 03/12/2017 Administered Portal Infor mation FluZone Quadrivalent Unknown 02/22/2018 Administered Po rtal Information Covid 19 (Pfizer) Unknown 06/13/2020 Administered Covid 19 (Pfizer) Unknown 07/04/2020 Administered Social History Tobacco Use: Social History Observation Description Date Details (start date - stop date) Never Smoker NA - NA Sex Assigned At : Social History Observation Description Sex Assigned At Male Smoking Smart Form: Question Answer Notes Are you a: never smoker Tobacco Control (Standard) Question Answer Notes Tobacco use: Nonsmoker Problems Problem Type SNOMED Code ICD Code Onset Dates Problem Status W/U Status Risk Notes Problem Chronic allergic conjunctivitis (30392203) Other chronic allergic conjunctivitis (H10.45) Active confirmed Problem Bilateral otalgia (247517953) Otalgia, bilateral (H92.03) Active confirmed Problem Bilateral tinnitus (3792546846695) Tinnitus, bilateral (H93.13) Active confirmed Problem Allergic rhinitis caused by pollen (disorder) (80655453) Allergic rhinitis due to pollen (J30.1) Active confirmed Problem Seasonal allergic rhinitis (650153589) Other seasonal allergic rhinitis (J30.2) Active confirmed Problem Allergic rhinitis caused by animal hair and dander (606580572161863) Allergic rhinitis due to animal (cat) (dog) hair and dander (J30.81) Active confirmed Problem Allergic rhinitis (70959527) Other allergic rhinitis (J30.89) Active confirmed Problem Gastro-esophageal reflux disease without esophagitis (072390077) Gastro-esophageal reflux disease without esophagitis (K21.9) Active confirmed Problem Elevated blood pressure reading without diagnosis of hypertension (778614417) Elevated blood-pressure reading, without diagnosis of hypertension (R03.0) Active confirmed Vital Signs Respiratory Rate 17 /min 05/20/2024 Oximetry 99 % 11/30/2024 Blood pressure diastolic 74 mm Hg 11/30/2024 Height 73 in 11/30/2024 Blood pressure systolic 120 mm Hg 11/30/2024 Weight 261.2 lbs 11/30/2024 BMI 34.46 kg/m2 11/30/2024 Encounters Encounter Location Date Provider Diagnosis [facility] [address] [address] 02/05/2024 Max Chong Allergic rhinitis du e to pollen J30.1 ; Other allergic rhinitis J30.89 ; Allergic rhinitis due to animal (cat) (dog) hair and dander J30.81 and Other chronic allergic conjunctivitis H10.45 [facility] [address] [place] [phone] 03/04/2024 Max Chong Allergic rhinitis du e to pollen J30.1 ; Other allergic rhinitis J30.89 ; Allergic rhinitis due to animal (cat) (dog) hair and dander J30.81 and Other chronic allergic conjunctivitis H10.45 [facility] [address] [place] [phone] 04/05/2024 Max Chong Allergic rhinitis du e to pollen J30.1 ; Other allergic rhinitis J30.89 ; Allergic rhinitis due to animal (cat) (dog) hair and dander J30.81 and Other chronic allergic conjunctivitis H10.[address] [address] 05/03/2024 Max Chong Allergic rhinitis du e to pollen J30.1 ; Other allergic rhinitis J30.89 ; Allergic rhinitis due to animal (cat) (dog) hair and dander J30.81 and Other chronic allergic conjunctivitis H10.[address] [address] 05/20/2024 Gilda Alex Allergic rhinitis du e to pollen J30.1 ; Other allergic rhinitis J30.89 ; Other chronic allergic conjunctivitis H10.45 ; Tinnitus, bilateral H93.13 ; Gastro-esophageal reflux disease without esophagitis K21.9 and Elevated blood-pressure reading, without diagnosis of hypertension R03.[address] [address] 06/17/2024 Max Chong Allergic rhinitis du e to pollen J30.1 ; Other allergic rhinitis J30.89 ; Allergic rhinitis due to animal (cat) (dog) hair and dander J30.81 and Other chronic allergic conjunctivitis H10.[address] [address] 07/15/2024 Max Chong Allergic rhinitis du e to pollen J30.1 ; Other allergic rhinitis J30.89 ; Allergic rhinitis due to animal (cat) (dog) hair and dander J30.81 and Other chronic allergic conjunctivitis H10.[address] [address] 08/12/2024 Max Chong Allergic rhinitis du e to pollen J30.1 ; Other allergic rhinitis J30.89 ; Allergic rhinitis due to animal (cat) (dog) hair and dander J30.81 and Other chronic allergic conjunctivitis H10.45 [facility] [address] [address] 09/09/2024 Max Chong Allergic rhinitis du e to pollen J30.1 ; Other allergic rhinitis J30.89 ; Allergic rhinitis due to animal (cat) (dog) hair and dander J30.81 and Other chronic allergic conjunctivitis H10.[address] [address] 10/21/2024 Max Chong Allergic rhinitis du e to pollen J30.1 ; Other allergic rhinitis J30.89 ; Allergic rhinitis due to animal (cat) (dog) hair and dander J30.81 and Other chronic allergic conjunctivitis H10.[address] [address] 11/30/2024 Uyen Euceda Allergic rhinitis du e to pollen J30.1 ; Other allergic rhinitis J30.89 ; Other chronic allergic conjunctivitis H10.45 ; Tinnitus, bilateral H93.13 and Gastro-esophageal reflux disease without esophagitis K21.[address] [address] 12/07/2024 Max Chong Allergic rhinitis du e to pollen J30.1 ; Other allergic rhinitis J30.89 ; Allergic rhinitis due to animal (cat) (dog) hair and dander J30.81 and Other chronic allergic conjunctivitis H10.[address] [address] 12/14/2024 Max Chong Allergic rhinitis du e to pollen J30.1 ; Other allergic rhinitis J30.89 ; Allergic rhinitis due to animal (cat) (dog) hair and dander J30.81 and Other chronic allergic conjunctivitis H10.[address] [address] 01/13/2025 Max Chong Allergic rhinitis du e to pollen J30.1 ; Other allergic rhinitis J30.89 ; Allergic rhinitis due to animal (cat) (dog) hair and dander J30.81 and Other chronic allergic conjunctivitis H10.45 Assessments Encounter Date Diagnosis (ICD Code) Assessment Notes Treatment Notes Treatment Clinical Notes Section Notes 02/05/2024 Allergic rhinitis due to pollen (ICD-10 - J30.1) 03/04/2024 Allergic rhinitis due to pollen (ICD-10 - J30.1) 04/05/2024 Allergic rhinitis due to pollen (ICD-10 - J30.1) 05/03/2024 Allergic rhinitis due to pollen (ICD-10 - J30.1) 05/20/2024 Allergic rhinitis due to pollen (ICD-10 - J30.1) William clearly suffers from atopic disease based upon our prior skin testing and history. He has been on MM since 08/2018. He is intersted in reducing meds to see if he still needs immunotherapy. Has already reduced Astelin - Will reduce Flonase to PRN as well - he has chronic ETD and vertigo. He likely had nerve damage from his experience. Interestingly he feels this improved with SCIT and Azelastine.Conside r reformuation if desired but doing well on current treatment plan - continues on SCIT without issues. dosing received today and tolerated well - continue moisturization drops for itch relief - continue to follow with ENT and Audiology as well - follow-up in 3-6 months and as scheduled for SCIT 05/20/2024 Other allergic rhinitis (ICD-10 - J30.89) Follow allergen avoidance, meds and continue SCIT as an adjunctive treatment to current regimen 06/17/2024 Allergic rhinitis due to pollen (ICD-10 - J30.1) 07/15/2024 Allergic rhinitis due to pollen (ICD-10 - J30.1) 08/12/2024 Allergic rhinitis due to pollen (ICD-10 - J30.1) 09/09/2024 Allergic rhinitis due to pollen (ICD-10 - J30.1) 10/21/2024 Allergic rhinitis due to pollen (ICD-10 - J30.1) 11/30/2024 Allergic rhinitis due to pollen (ICD-10 - J30.1) William clearly suffers from atopic disease based upon our prior skin testing and history. He has been on MM since 08/2018. He returns today feeling well, currently behind on SCIT dosing due to vacation and reports he can tell he is due for his injections. - William has chronic ETD and vertigo. He likely had nerve damage from his experience. Interestingly he feels this improved with SCIT and Azelastine. - We thoroughly discussed reformulation today, though William continues to feel well on his current treatment plan. Vials were recently remade. Discussed increasing SCIT frequency to assess for benefit. Consider reformulation with next vial remake. - Dosing received today and tolerated well - Continue moisturization drops for itch relief - Continue to follow with ENT and Audiology as well - Follow-up in 3-6 months and as scheduled for SCIT 11/30/2024 Other allergic rhinitis (ICD-10 - J30.89) Follow allergen avoidance, meds and continue SCIT as an adjunctive treatment to current regimen 12/07/2024 Allergic rhinitis due to pollen (ICD-10 - J30.1) 12/14/2024 Allergic rhinitis due to pollen (ICD-10 - J30.1) 01/13/2025 Allergic rhinitis due to pollen (ICD-10 - J30.1) 12/14/2024 Other allergic rhinitis (ICD-10 - J30.89) 12/07/2024 Other allergic rhinitis (ICD-10 - J30.89) 10/21/2024 Other allergic rhinitis (ICD-10 - J30.89) 11/30/2024 Other chronic allergic conjunctivitis (ICD-10 - H10.45) Follow allergen avoidance, meds and SCIT per schedule. Increase frequency PRN. 09/09/2024 Other allergic rhinitis (ICD-10 - J30.89) 08/12/2024 Other allergic rhinitis (ICD-10 - J30.89) 07/15/2024 Other allergic rhinitis (ICD-10 - J30.89) 06/17/2024 Other allergic rhinitis (ICD-10 - J30.89) 05/03/2024 Other allergic rhinitis (ICD-10 - J30.89) 05/20/2024 Other chronic allergic conjunctivitis (ICD-10 - H10.45) Follow allergen avoidance, meds and SCIT per schedule. Increase frequency PRN. 04/05/2024 Other allergic rhinitis (ICD-10 - J30.89) 03/04/2024 Other allergic rhinitis (ICD-10 - J30.89) 02/05/2024 Other allergic rhinitis (ICD-10 - J30.89) 01/13/2025 Other allergic rhinitis (ICD-10 - J30.89) 02/05/2024 Allergic rhinitis due to animal (cat) (dog) hair and dander (ICD-10 - J30.81) 03/04/2024 Allergic rhinitis due to animal (cat) (dog) hair and dander (ICD-10 - J30.81) 04/05/2024 Allergic rhinitis due to animal (cat) (dog) hair and dander (ICD-10 - J30.81) 05/20/2024 Tinnitus, bilateral (ICD-10 - H93.13) Historically with ear pressure and pain, with noted improvement on SCIT. He is s/p ENT and Audiology, hearing loss is stable, with noted normal tympanic and eustachian tube function - Continue aggressive allergy management, as symptoms continue to improve with SCIT 05/03/2024 Allergic rhinitis due to animal (cat) (dog) hair and dander (ICD-10 - J30.81) 06/17/2024 Allergic rhinitis due to animal (cat) (dog) hair and dander (ICD-10 - J30.81) 07/15/2024 Allergic rhinitis due to animal (cat) (dog) hair and dander (ICD-10 - J30.81) 08/12/2024 Allergic rhinitis due to animal (cat) (dog) hair and dander (ICD-10 - J30.81) 09/09/2024 Allergic rhinitis due to animal (cat) (dog) hair and dander (ICD-10 - J30.81) 10/21/2024 Allergic rhinitis due to animal (cat) (dog) hair and dander (ICD-10 - J30.81) 11/30/2024 Tinnitus, bilateral (ICD-10 - H93.13) Historically with ear pressure and pain, with noted improvement on SCIT. He is s/p ENT and Audiology, hearing loss is stable, with noted normal tympanic and eustachian tube function - Continue aggressive allergy management, as symptoms continue to improve with SCIT 12/07/2024 Allergic rhinitis due to animal (cat) (dog) hair and dander (ICD-10 - J30.81) 12/14/2024 Allergic rhinitis due to animal (cat) (dog) hair and dander (ICD-10 - J30.81) 01/13/2025 Allergic rhinitis due to animal (cat) (dog) hair and dander (ICD-10 - J30.81) 01/13/2025 Other chronic allergic conjunctivitis (ICD-10 - H10.45) 12/14/2024 Other chronic allergic conjunctivitis (ICD-10 - H10.45) 11/30/2024 Gastro-esophageal reflux disease without esophagitis (ICD-10 - K21.9) Cough at night with bad taste likely due to reflux. Avoid alcohol in the evenings or dose Pepcid on those nights. Elevate HOB and avoid late night eating - Consider spirometry if symptoms do not resolve, no complaints today 12/07/2024 Other chronic allergic conjunctivitis (ICD-10 - H10.45) 10/21/2024 Other chronic allergic conjunctivitis (ICD-10 - H10.45) 09/09/2024 Other chronic allergic conjunctivitis (ICD-10 - H10.45) 08/12/2024 Other chronic allergic conjunctivitis (ICD-10 - H10.45) 07/15/2024 Other chronic allergic conjunctivitis (ICD-10 - H10.45) 06/17/2024 Other chronic allergic conjunctivitis (ICD-10 - H10.45) 05/20/2024 Gastro-esophageal reflux disease without esophagitis (ICD-10 - K21.9) Cough at night with bad taste likely due to reflux. Avoid alcohol in the evenings or dose Pepcid on those nights. Elevate HOB and avoid late night eating -consider spirometry if syptoms dont resolve 05/03/2024 Other chronic allergic conjunctivitis (ICD-10 - H10.45) 04/05/2024 Other chronic allergic conjunctivitis (ICD-10 - H10.45) 03/04/2024 Other chronic allergic conjunctivitis (ICD-10 - H10.45) 02/05/2024 Other chronic allergic conjunctivitis (ICD-10 - H10.45) 05/20/2024 Elevated blood-pressure reading, without diagnosis of hypertension (ICD-10 - R03.0) Previously elevated at prior visits. Today WNL. Continue serial checks 05/20/2024 Other 11/30/2024 Other Plan Of Treatment Next Appt Details Provider Name:Max Chong , 02/10/2025 09:30:00 AM, [address] [facility], [address], [place], [address], Provider Name:Max Chong , 03/10/2025 09:30:00 AM, [address] [facility], [address], [place], [address], Provider Name:Max Chong , 04/05/2025 09:30:00 AM, [address] [facility], [address], [place], [address], Provider Name:Gilda Johnson , 06/02/2025 09:30:00 AM, [address] [facility] [address], [place], [address], Insurance Providers Payer Name Payer Address Payer Phone Subscriber Number Group Number Insured Name Patient Relationship to Insured Coverage Start Date Coverage End Date [employer] (Medicare) Attention Claims [address] [place] [address] [id number] Tony Tobin Self - patient is the insured [facility] [address] [place] [address] [id number] Tony Tobin Self - patient is the insured [email or web address] [address] [place] [address] [id number] Tony Tobin Self - patient is the insured Medical (General) History Medical History History ICD Code Pure hypercholesterolemia, unspecified Chronic atrial fibrillation Dizziness and giddiness Gastro-esophageal reflux disease without esophagitis Other specified anxiety disorders Surgical History Surgery Date(Month/Year) Right Inguinal Hernia Repair 08/06/2012 Right Foot/Toe Ligament Repair 2 Left Inguinal Hernia Repair 07/24/2009 Fissure Repair/Hemorrhoid Removal 2005 Fissure Repair/Hemorrhoid Removal 2000 Hospitalization History Reason Date(Month/Year) Atrial Fibrillation 04/24/2016
--- OUTSIDE RECORDS SUMMARY | 2025-01-17 06:46 | XMS_ITS | Encounter Summary ---
Author Organization [facility] Address [address] [place] [address] Care Team Providers Care Support Team Assoc Name Role Phone Unavailable Primary Care Provider Unavailabl e Encounter Details Date Type Department Care Team (Late st Contact Info) Description 01/12/2025 Lab Requisition [facility] - DermPath Lab [address] [place] [phone] Kavita Horn MD [address] [place], [place] [id number] Melanocytic nevi of scalp and neck; Neoplasm of uncertain behavior of skin Social History Tobacco Use Types Packs/Day Years [...] neck Neoplasm of uncertain behavior of skin documented in this encounter Results * DERMATOPATHOLOGY (01/12/2025 9:00 AM CDT) Case Report Dermatopathology Report Case: [id number] Authorizing Provider: Kavita Horn MD Collected: 01/12/2025 09:00 AM Ordering Location: [facility] - Received: 01/13/2025 07:29 AM DermPath Lab Pathologist: Kavita Holman MD Specimens: A) - Skin, right posterior neck B) - Skin, left lateral superior chest 4:52 PM CDT DERMATOPATHOLOGY LABORATORY Final Diagnosis Specimen A. SKIN, right posterior neck: COMPOUND MELANOCYTIC NEVUS (D22.4) Specimen B. SKIN, left lateral superior chest: COMPOUND MELANOCYTIC PROLIFERATION (D48.5) (see microscopic description and comment) 4:52 PM T DERMATOPATHOLOGY LABORATORY at 1652 CDT Clinical History [...] measuring 7x6x1 mm. Jar 0. 4:52 PM CDT DERMATOPATHOLOGY LABORATORY Microscopic Description Specimen [...] who concurs with the diagnosis. 4:52 PM CDT DERMATOPATHOLOGY LABORATORY Disclaimer An external and internal positive and negative controls are appropriate for the histochemical, immunohistochemical and immunofluorescence stain(s) in this case (if any), except where stated explicitly. The performance characteristics of the stain(s) cited in this report were developed and its performance characteristic determined by the Dermatopathology Laboratory at [facility], directed by Dr. Jonathan Hua. These tests need not be, and therefore are not, approved by the [place] Food and Drug Administration. The tests are used for clinical purposes. Billing Codes Specimen Charges Stain Charges 28119 47467 1 1 [id number] 1 1 5 4:52 PM CDT DERMATOPATHOLOGY LABORATORY Embedded Images 4:52 PM CDT DERMATOPATHOLOGY LABORATORY Pathology/Cytology TISSUE SPECIMEN FROM SKIN / Unknown 01/12/2025 9:00 AM CDT 01/13/2025 7:29 AM CDT Miscellaneous samples (specimen) TISSUE SPECIMEN FROM SKIN / Unknown 01/12/2025 9:00 AM CDT 01/13/2025 7:29 AM CDT Kavita Horn MD LAB - PATHOLOGY/CYTOLOGY THEO CERVANTES Final Result DERMATOPATHOLOGY LABORATORY [facility] - Department of Dermatology [address], [address] [phone] documented in this encounter Visit Diagnoses Diagnosis Melanocytic nevi of scalp and neck Benign neoplasm of scalp and skin of neck Neoplasm of uncertain behavior of skin documented in this encounter
[2025-01-17 08:26] LABS: Hematocrit 46.1 % (42.0-52.0); Hemoglobin 15.7 g/dL (14.0-18.0); Immature Granulocyte Percent A 0.1 % (0-0.5); Lymphocytes Absolute Auto 2.35 K/mm3 (0.9-3.2); Mean Corpuscular HGB Conc 34.1 g/dl (32-36); Mean Corpuscular Hemoglobin 31.8 pg (26-34); Mean Corpuscular Volume 93.3 fl (80-100); Nucleated Red Blood Cells Absolute Auto 0.000 K/mm3 (0.0-0.012); Nucleated Red Blood Cells Perc 0.0 % (0.0-0.2); Platelet Count Result 230 k/mm3 (150-375); Red Blood Count 4.94 M/mm3 (4.6-6.20); White Blood Count 7.2 K/mm3 (4.5-10.0)
[2025-01-17 08:55] LABS: Alanine Aminotransferase 25 U/L (6-50); Albumin Level 4.2 g/dL (3.5-5.1); Alkaline Phosphatase 78 U/L (38-126); Anion Gap 8 mmol/L (4-12); Aspartate Amino Transferase 29 U/L (17-59); Bilirubin,Total 0.5 mg/dL (0.2-1.3); Blood Urea Nitrogen 12 mg/dL (9-20); Calcium 9.5 mg/dL (8.4-10.2); Carbon Dioxide 25 mmol/L (22-30); Chloride 107 mmol/L (98-107); Cholesterol 176 mg/dL (0-200); Estimated Glomerular Filt Rate > 60; Glucose 100 mg/dL (65-110); HDL Direct 35 mg/dL; Potassium 4.1 mmol/L (3.4-5.0); Sodium 140 mmol/L (137-145); Total Protein 7.3 g/dL (6.3-8.2); Triglycerides 227 mg/dL (<150)
[2025-01-17 09:24] LABS: Prostate Specific Antigen 4.1 ng/mL (< OR = 4.0)
[2025-01-17 09:31] LABS: Thyroid Stimulating Hormone Reflex 1.030 uIU/mL (0.465-4.68)
== END 2025-01-17 06:43 | disposition home or self-care (01) ==
PROVIDERS: PCP Family Medicine
DX: E78.2 Mixed hyperlipidemia (principal); I48.0 Paroxysmal atrial fibrillation; Z12.5 Encounter for screening for malignant neoplasm of prostate; R53.83 Other fatigue; M25.562 Pain in left knee; M25.561 Pain in right knee; M17.11 Unilateral primary osteoarthritis, right knee
CPT/HCPCS: 36415; 73560; 80053; 80061; 84153; 84443; 85025; G0103